=== PATIENT | male | born 1980 | race Caucasian/White ===

== ENCOUNTER 2020-01-22 10:34 | Outpatient (REF) | payer OTHER, SELFPAY | END 2020-01-22 10:35 | disposition home or self-care (01) | LOC: HO.LAB 10:34 | PROVIDERS: Visit Provider Internal Medicine | DX: Z20.828 Contact with and (suspected) exposure to other viral communicable diseases (principal) | CPT/HCPCS: C9803; U0003 ==

== ENCOUNTER 2020-04-01 12:15 | Outpatient (REF) | payer OTHER, SELFPAY | END 2020-04-01 12:16 | disposition home or self-care (01) | LOC: HO.LAB 12:15 | PROVIDERS: Visit Provider Internal Medicine | DX: Z20.822 Contact with and (suspected) exposure to COVID-19 (principal) | CPT/HCPCS: 36415; C9803; U0003 ==

== ENCOUNTER 2021-02-13 09:59 | Outpatient (REF) | payer OTHER, SELFPAY | END 2021-02-13 10:00 | disposition home or self-care (01) | LOC: HO.LAB 09:59 | PROVIDERS: Visit Provider Internal Medicine | DX: Z20.822 Contact with and (suspected) exposure to COVID-19 (principal) | CPT/HCPCS: C9803; U0003; U0005 ==